=== PATIENT | male | born 1975 | race Two or more races ===

== ENCOUNTER 2021-05-09 16:22 | Emergency (ER) | payer OTHER ==
[~2021-05-09] VITALS: Ht 172.7 cm; Wt 99.8 kg
[2021-05-09 16:30] VITALS: BP 157/99
[2021-05-09] MEDS ORDERED: cefTRIAXone SOD 1,000 MG VL IM ONE (17:45)
[2021-05-09] MEDS ORDERED: methylPREDNISolone SOD SUCC 125 MG/2 ML VL IM ONE (17:45)
[2021-05-09] MEDS ORDERED: IBUPROFEN 800 MG TAB PO ONE (18:15)
== END 2021-05-09 18:21 | disposition home or self-care (01) ==
LOC: ER 16:22
DX: J03.90 Acute tonsillitis, unspecified (principal)
CPT/HCPCS: 96372; 99284; J0696; J2930

== ENCOUNTER 2021-07-04 14:33 | Emergency (ER) | payer OTHER ==
[~2021-07-04] VITALS: Ht 172.7 cm; Wt 104.3 kg
[2021-07-04 16:32] VITALS: BP 151/103
== END 2021-07-04 17:32 | disposition home or self-care (01) ==
LOC: ER 14:33
DX: G44.209 Tension-type headache, unspecified, not intractable (principal)
CPT/HCPCS: 70450

== ENCOUNTER 2021-11-28 20:55 | Emergency (ER) | payer OTHER ==
[~2021-11-28] VITALS: Ht 175.3 cm; Wt 104.3 kg
[2021-11-29 00:16] VITALS: BP 161/101
[2021-11-29] MEDS ORDERED: IBUP800T27 PO (00:56)
[2021-11-29] MEDS ORDERED: ONDA-144 PO (00:56)
[2021-11-29] MEDS ORDERED: GUAI600T23 PO (00:56)
[2021-11-29] MEDS ORDERED: KETOROLAC TROMETH 30 MG/ML 1ML VIAL IM ONE (01:00)
[2021-11-29] MEDS ORDERED: ONDANSETRON ODT 4 MG TAB PO ONE (01:00)
== END 2021-11-29 01:31 | disposition home or self-care (01) ==
LOC: ER 20:58
DX: J06.9 Acute upper respiratory infection, unspecified (principal); Z20.822 Contact with and (suspected) exposure to COVID-19
CPT/HCPCS: 36415; 87426; 96372; 99283; J1885; Q0162